=== PATIENT | male | born 1975 | race Caucasian/White ===

== ENCOUNTER 2018-05-04 09:56 | Day surgery (SDC) | payer BC ==
[2018-05-04] MEDS: CEFAZOLIN 2 GM/50 ML (PMX) 50 ML IVPB (09:00)
[~2018-05-04 09:56] MED LIST: GLYCOPYRROLATE 0.4 MG INJ; LIDOCAINE 2% (SDV) 5 ML INJ; SOD CHLORIDE 0.9% 1,000 ML IV
[2018-05-04 10:33] LABS: ADD MAN DIFF? NO
[2018-05-04 10:39] LABS: WHITE BLOOD COUNT 4.5 10^3/ul (4.8-10.8)
[2018-05-04 10:39] LABS: BASOPHILS % 0.7 % (0.0-2.0); EOSINOPHILS # 0.2 10^3/ul (0.0-0.5); HEMATOCRIT 48.6 % (42.0-52.0); HEMOGLOBIN 17.1 g/dl (14.0-18.0); LYMPHOCYTES # 1.5 10^3/ul (0.8-2.9); LYMPHOCYTES % 33.5 % (15.0-51.0); MEAN CORPUSCULAR HEMOGLOBIN 31.8 pg (29.0-33.0); MEAN CORPUSCULAR HGB CONC 35.2 g/dl (32.0-37.0); MEAN CORPUSCULAR VOLUME 90.3 fl (82.0-101.0); MEAN PLATELET VOLUME 10.5 fl (7.4-10.4); MONOCYTE # 0.5 10^3/ul (0.3-0.9); MONOCYTES % 11.8 % (0.0-11.0); NEUTROPHIL # 2.2 10^3/ul (1.6-7.5); NEUTROPHILS % 49.8 % (39.0-77.0); PLATELET COUNT 190 10^3/UL (140-415); RED BLOOD COUNT 5.38 10^6/ul (4.70-6.10); RED CELL DISTRIBUTION WIDTH 12.3 % (11.5-14.5)
[2018-05-04 10:59] LABS: INR 0.93; PROTIME 12.6 Sec (11.9-14.9)
[2018-05-04 11:00] LABS: ALANINE AMINOTRANSFERASE 69 IU/L (13-69); ALBUMIN 4.5 g/dl (3.3-4.9); ALKALINE PHOSPHATASE 63 IU/L (42-121); ANION GAP 8 (5-13); ASPARTATE AMINO TRANSFERASE 39 IU/L (15-46); BILIRUBIN,INDIRECT 1.2 mg/dl (0-1.1); BILIRUBIN,TOTAL 1.2 mg/dl (0.2-1.3); BLOOD UREA NITROGEN 17 mg/dl (7-20); CALCIUM 9.4 mg/dl (8.4-10.2); CARBON DIOXIDE 27 mmol/L (21-31); CHLORIDE 105 mmol/L (97-110); CREATININE 0.79 mg/dl (0.61-1.24); Estimated GFR > 60 mL/min (>60); GLUCOSE 101 mg/dl (70-220); PARTIAL THROMBOPLASTIN TIME 27.1 Sec (23.0-35.0); POTASSIUM 3.9 mmol/L (3.5-5.1); SODIUM 140 mmol/L (135-144)
[2018-05-04] MEDS ORDERED: BUPIVACAINE 0.25% (MPF) 30 ML INJ (12:40)
[2018-05-04] MEDS ORDERED: POLYMYXIN/BACITRACIN 1L IRRIG (12:41)
[2018-05-04] MEDS ORDERED: PROPOFOL 20 ML (13:00)
[2018-05-04] MEDS ORDERED: ROCURONIUM 50 MG INJ (13:01)
[2018-05-04] MEDS ORDERED: CEFAZOLIN 1 GM INJ (13:06)
[2018-05-04] MEDS: BUPIVACAINE 0.25% (MPF) 30 ML INJ (13:30)
[2018-05-04] MEDS ORDERED: GLYCOPYRROLATE 0.4 MG INJ (13:46)
[2018-05-04] MEDS ORDERED: NEOSTIGMINE 3 MG/3 ML SYRINGE (13:46)
[2018-05-04] MEDS ORDERED: ALBUTEROL 0.083% (NEB) 2.5 MG/3 ML AMP HHN (14:00)
[2018-05-04] MEDS ORDERED: hydrALAzine 20 MG INJ IV (14:00)
[2018-05-04] MEDS ORDERED: LABETALOL HCL 20MG INJ IV (14:00)
[2018-05-04] MEDS ORDERED: HYDROmorphONE 1 MG/5 ML IV SYRINGE IV ×2 (14:00→14:01)
[2018-05-04] MEDS ORDERED: MIDAZOLAM 1 MG/ML 2 ML INJ IV (14:00)
[2018-05-04] MEDS ORDERED: KETOROLAC 30 MG INJ IV (14:00)
[2018-05-04] MEDS ORDERED: ONDANSETRON 4 MG INJ IV (14:00)
[2018-05-04] MEDS ORDERED: OXYCODONE/ACETAMINOPHEN (5/325) TAB PO ×2 (14:00)
[2018-05-04] MEDS ORDERED: DIPHENHYDRAMINE 50 MG INJ IV (14:00)
[2018-05-04] MEDS ORDERED: EPHEDrine SULFATE 50 MG/5 ML SYG IV (14:00)
[2018-05-04] MEDS ORDERED: FENTAnyl 50 MCG/ML VIAL IV ×2 (14:00)
[2018-05-04] MEDS ORDERED: METOCLOPRAMIDE 10 MG INJ IV (14:00)
[2018-05-04] MEDS ORDERED: MEPERIDINE 25 MG INJ (14:04)
[2018-05-04] MEDS: MEPERIDINE 25 MG INJ IV (14:05)
[2018-05-04] MEDS: HYDROmorphONE 1 MG/5 ML IV SYRINGE IV ×2 (14:15→14:30)
[2018-05-04] MEDS ORDERED: HYDROCODONE/APAP (5/325) TAB (14:25)
[2018-05-04] MEDS: HYDROCODONE/APAP (5/325) TAB PO (14:32)
[2018-05-04] MEDS: FENTAnyl 50 MCG/ML VIAL IV (14:42)
== END 2018-05-04 16:55 | disposition home or self-care (01) ==
LOC: SDS 09:56
DX: K40.30 Unilateral inguinal hernia, with obstruction, without gangrene, not specified as recurrent (principal)
CPT/HCPCS: 49507; 80053; 85025; 85610; 85730; 88302